=== PATIENT | male | born 1995 | race Caucasian/White ===

== ENCOUNTER 2017-07-18 12:11 | Inpatient (IN) | payer OTHER ==
[~2017-07-18] VITALS: Ht 154.9 cm; Wt 39.9 kg
[~2017-07-18 12:11] MED LIST: ADCIRCA20 MG PO; ALDACTONE25 MG PO; ALDACTONE50 MG PO; CIALIS10 MG; COUMADIN2 MG PO; COUMADIN3 MG PO; COUMADIN5 MG PO; COUMADIN6 MG PO; DIGOX125 MCG PO; FUROSEMIDE20 MG PO; LANOXIN,DIGI0.125 MG PO; LASIX20 MG PO; LASIX40 MG PO; REMODULIN IV; REMODULIN PO; REMODULIN SC; TRACLEER62.5 MG PO
[2017-07-18 12:39] LABS: HEMATOCRIT 46.5 % (38.0-50.0); HEMOGLOBIN 15.7 G/DL (12.5-16.6); MCH 30.5 PG (29.0-34.0); MCHC 33.8 G/DL (30.0-36.0); MCV 90.5 FL (86-99); PLATELET COUNT 146 K/uL (156-360); RBC DIS.WIDTH-CV 12.8 % (11.8-14.6); RBC DIS.WIDTH-SD 42.2 % (39-53); RED BLOOD COUNT 5.14 M/uL (4.00-5.50); WHITE BLOOD COUNT 10.2 K/uL (4.1-10.2)
[2017-07-18 12:49] LABS: CHLORIDE 101 mEq/L (99-109); POTASSIUM 4.6 mEq/L (3.7-5.4); SODIUM 137 mEq/L (136-147)
[2017-07-18 12:50] LABS: GLUCOSE 124 mg/dL (70-99)
[2017-07-18 12:54] LABS: CREATININE 0.6 mg/dL (0.6-1.3); GFR ESTIMATE (CALCULATED) > 59 mL/min/ (58.99-99999)
[2017-07-18 12:55] LABS: UREA NITROGEN (BUN) 7 mg/dL (9-23)
[2017-07-18 13:54] LABS: INTER. NORMALIZED RATIO 4.8
[2017-07-18 15:02] LABS: BASOPHIL (%) 0.2 % (0-1); EOSINOPHIL (%) 0.6 % (0-5); EOSINOPHIL COUNT 0.1 K/uL (0-0.3); IMMATURE GRANULOCYTE (%) 0.4 % (0.0-0.7); LYMPHOCYTE (%) 7.8 % (15-42); LYMPHOCYTE COUNT 0.8 K/uL (1.0-2.8); MONOCYTE (%) 5.8 % (3-12); MONOCYTE COUNT 0.6 K/uL (0-0.8); NEUTROPHIL (%) 85.2 % (45-76); NEUTROPHIL COUNT 8.4 K/uL (1.8-6.4)
[2017-07-18] MEDS ORDERED: LETAIRIS5 MG PO (15:09)
[2017-07-18] MEDS ORDERED: FOCALIN XR15 M1 PO (15:09)
[2017-07-18 23:47] VITALS: BP 103/57
[2017-07-19 04:42] VITALS: BP 108/62
[2017-07-19 06:20] LABS: BASOPHIL (%) 0.1 % (0-1); EOSINOPHIL (%) 0.2 % (0-5); HEMATOCRIT 39.6 % (38.0-50.0); IMMATURE GRANULOCYTE (%) 0.3 % (0.0-0.7); LYMPHOCYTE (%) 10.7 % (15-42); LYMPHOCYTE COUNT 1.1 K/uL (1.0-2.8); MCHC 33.3 G/DL (30.0-36.0); MONOCYTE (%) 7.4 % (3-12); MONOCYTE COUNT 0.8 K/uL (0-0.8); NEUTROPHIL (%) 81.3 % (45-76); NEUTROPHIL COUNT 8.6 K/uL (1.8-6.4); PLATELET COUNT 125 K/uL (156-360); RBC DIS.WIDTH-CV 12.6 % (11.8-14.6); RBC DIS.WIDTH-SD 41.9 % (39-53); WHITE BLOOD COUNT 10.5 K/uL (4.1-10.2)
[2017-07-19 06:22] LABS: HEMOGLOBIN 13.2 G/DL (12.5-16.6)
[2017-07-19 06:30] LABS: INTER. NORMALIZED RATIO 4.1
[2017-07-19 06:33] LABS: ALBUMIN 3.5 G/DL (3.2-4.8); ALKALINE PHOSPHATASE 70 IU/L (3-129); ALT (GPT) 8 IU/L (3-49); AST (GOT) 11 IU/L (2-34); CHLORIDE 98 MEQ/L (99-109); CREATININE 0.4 MG/DL (0.6-1.3); DIRECT BILIRUBIN 0.2 mg/dL (0.0-0.3); GFR ESTIMATE (CALCULATED) > 59 mL/min/ (58.99-99999); POTASSIUM 4.4 MEQ/L (3.7-5.4); SODIUM 136 MEQ/L (136-147); TOTAL BILIRUBIN 0.8 MG/DL (0.0-1.0); TOTAL PROTEIN 5.7 G/DL (6.4-8.3); UREA NITROGEN (BUN) 7 mg/dL (9-23)
[2017-07-19 06:36] LABS: GLUCOSE 91 mg/dL (70-99)
[2017-07-19 06:50] VITALS: BP 103/59
[2017-07-19 11:25] VITALS: BP 105/60
[2017-07-19 14:56] VITALS: BP 95/51
[2017-07-19 23:50] VITALS: BP 103/51
[2017-07-20 06:45] LABS: BASOPHIL (%) 0 % (0-1); EOSINOPHIL (%) 0.3 % (0-5); HEMATOCRIT 38.9 % (38.0-50.0); HEMOGLOBIN 12.5 G/DL (12.5-16.6); IMMATURE GRANULOCYTE (%) 0.4 % (0.0-0.7); LYMPHOCYTE (%) 7.5 % (15-42); LYMPHOCYTE COUNT 0.5 K/uL (1.0-2.8); MCHC 32.1 G/DL (30.0-36.0); MCV 90.3 FL (86-99); MONOCYTE (%) 6.6 % (3-12); MONOCYTE COUNT 0.5 K/uL (0-0.8); NEUTROPHIL (%) 85.2 % (45-76); NEUTROPHIL COUNT 6.2 K/uL (1.8-6.4); PLATELET COUNT 157 K/uL (156-360); RBC DIS.WIDTH-CV 12.5 % (11.8-14.6); RBC DIS.WIDTH-SD 41.9 % (39-53); RED BLOOD COUNT 4.31 M/uL (4.00-5.50); WHITE BLOOD COUNT 7.2 K/uL (4.1-10.2)
[2017-07-20 06:58] LABS: INTER. NORMALIZED RATIO 2.2
[2017-07-20 07:18] LABS: CHLORIDE 97 MEQ/L (99-109); CREATININE 0.4 MG/DL (0.6-1.3); GFR ESTIMATE (CALCULATED) > 59 mL/min/ (58.99-99999); POTASSIUM 4.2 MEQ/L (3.7-5.4); SODIUM 136 MEQ/L (136-147); UREA NITROGEN (BUN) 6 mg/dL (9-23)
[2017-07-20 07:22] LABS: GLUCOSE 115 mg/dL (70-99)
[2017-07-20 07:53] VITALS: BP 112/57
[2017-07-20 11:06] VITALS: BP 109/68
[2017-07-20 15:55] VITALS: BP 100/53
[2017-07-21] VITALS (7 sets, daily range): BP systolic 101–116; BP diastolic 55–65
[2017-07-21 06:40] LABS: BASOPHIL (%) 0.2 % (0-1); EOSINOPHIL (%) 1.6 % (0-5); EOSINOPHIL COUNT 0.1 K/uL (0-0.3); HEMATOCRIT 38.5 % (38.0-50.0); HEMOGLOBIN 12.6 G/DL (12.5-16.6); IMMATURE GRANULOCYTE (%) 0.2 % (0.0-0.7); LYMPHOCYTE (%) 17.4 % (15-42); LYMPHOCYTE COUNT 1.1 K/uL (1.0-2.8); MCHC 32.7 G/DL (30.0-36.0); MCV 91.7 FL (86-99); MONOCYTE (%) 9.1 % (3-12); MONOCYTE COUNT 0.6 K/uL (0-0.8); NEUTROPHIL (%) 71.5 % (45-76); NEUTROPHIL COUNT 4.4 K/uL (1.8-6.4); PLATELET COUNT 146 K/uL (156-360); RBC DIS.WIDTH-CV 12.7 % (11.8-14.6); RBC DIS.WIDTH-SD 42.7 % (39-53); WHITE BLOOD COUNT 6.2 K/uL (4.1-10.2)
[2017-07-21 06:49] LABS: INTER. NORMALIZED RATIO 1.6
[2017-07-21 07:02] LABS: CHLORIDE 95 MEQ/L (99-109); CREATININE 0.3 MG/DL (0.6-1.3); GFR ESTIMATE (CALCULATED) > 59 mL/min/ (58.99-99999); GLUCOSE 102 mg/dL (70-99); POTASSIUM 3.9 MEQ/L (3.7-5.4); SODIUM 138 MEQ/L (136-147); UREA NITROGEN (BUN) 5 mg/dL (9-23)
[2017-07-21] MEDS ORDERED: TYLENOL REGULA325 MG PO (21:05)
[2017-07-21] MEDS ORDERED: Robitussin DM PO (21:05)
[2017-07-21] MEDS ORDERED: OMNICEF300 MG PO (21:06)
[2017-07-21] MEDS ORDERED: PROVENTIL,2.5 MG/3 M IH (21:07)
[2017-07-21] MEDS ORDERED: PROAIR HFA8.5 GM IH (21:07)
[2017-07-21] MEDS ORDERED: SPACE CHAMBER1 EACH MC (21:08)
[2017-07-21] MEDS ORDERED: NEBULIZER MC (21:08)
[2017-07-22 03:31] VITALS: BP 111/61
[2017-07-22 07:13] LABS: INTER. NORMALIZED RATIO 1.6
[2017-07-22 07:24] VITALS: BP 112/61
== END 2017-07-22 12:46 | disposition home or self-care (01) | DRG 194 ==
LOC: EME 12:11 → 5EAST 16:03 → EDOF 16:03 → ENRESERV 16:07 → EDOF 16:10 → ENRESERV 16:54 → 5EAST 19:05 → ENPENDDIS 07-22 → 5EAST 07-22 12:46
PROVIDERS: Internal Medicine
DX: J18.9 Pneumonia, unspecified organism (principal); J84.9 Interstitial pulmonary disease, unspecified; E44.0 Moderate protein-calorie malnutrition; I27.0 Primary pulmonary hypertension; D69.6 Thrombocytopenia, unspecified; F90.9 Attention-deficit hyperactivity disorder, unspecified type; Z79.01 Long term (current) use of anticoagulants; Z68.1 Body mass index [BMI] 19.9 or less, adult
CPT/HCPCS: 71046; 80048; 80076; 83605; 85025; 85027; 85610; 85730; 87040; 87502; 94640; 94640 76; 94760; 94799; 99202; 99281; 99285; J0456; J0696; J7030